=== PATIENT | male | born 1945 | race Caucasian/White ===

== ENCOUNTER → 2025-04-09 | Outpatient (CLI) | payer SELFPAY ==
[2025-04-09 11:48] LABS: SERUM TEARS COLLECTION SPECIMEN PROCESSED
== END | disposition home or self-care (01) ==
LOC: LAB 09:22
PROVIDERS: PCP Family Medicine; Referring Provider Ophthalmology; Visit Provider Ophthalmology
DX: Z00.00 Encounter for general adult medical examination without abnormal findings (principal)